=== PATIENT | female | born 1975 | race Caucasian/White ===

== ENCOUNTER → 2024-02-09 | Outpatient (CLI) | payer OTHER ==
--- NOTE | 2024-02-12 16:58 | MM ---
Reason for Exam: Screening (asymptomatic). Last mammogram was performed 2 year(s) and 8 month(s) ago. Patient History: Menarche at age 12. First Full-Term at age 19. Premenopausal. Risk Values: Tierra 5 year model risk: 0.8%. NCI Lifetime model risk: 8.2%. Prior Study Comparison: 07/30/2017 Bilateral Screening Mammogram, [place]. 05/28/2021 Bilateral Screening Mammogram, [place]. Tissue Density: The breasts are heterogeneously dense, which may obscure small masses. Findings: Analyzed By CAD. Complex pattern appears stable. There is a rounded density measuring 1.8 cm with partially obscured margins 8 cm nipple mid posterior right cranial caudal view. Ultrasound recommended There is a 1.7 cm rounded density 9 cm upper left breast, approximately 11:00 position. Additional evaluation with ultrasound is recommended. Overall Assessment: Incomplete: need additional imaging evaluation, BI-RAD 0 Management: Diagnostic Breast Ultrasound of both breasts. A negative mammogram report should not preclude additional follow up of suspicious palpable abnormalities. Patient should continue monthly self breast exam. A clinical breast exam by your physician is recommended on an annual basis and results should be correlated with mammographic findings. Note on Tierra scores and lifetime risk: 1. A Tierra score greater than 3% is considered moderate risk. If this is the case, consider specialist referral to assess eligibility for a risk reducing agent. 2. If overall lifetime risk for the development of breast cancer is 20% or higher, the patient may qualify for future screening with alternating mammogram and breast MRI. [facility], , 02/12/2024 4:55 PM. Electronically signed and approved by: Christopher Chamberlain D.O. Radiologis
== END | disposition home or self-care (01) ==
LOC: RADMAMWWP 11:24
PROVIDERS: ATTEND Family Medicine
DX: Z12.31 Encounter for screening mammogram for malignant neoplasm of breast (principal); R92.333 Mammographic heterogeneous density, bilateral breasts
CPT/HCPCS: 77067

== ENCOUNTER → 2024-02-18 | Outpatient (CLI) | payer OTHER ==
--- NOTE | 2024-02-18 14:45 | USB ---
Reason for Exam: Additional evaluation requested from abnormal screening. Patient History: Menarche at age 12. First Full-Term at age 19. Premenopausal. Risk Values: Tierra 5 year model risk: 0.8%. NCI Lifetime model risk: 8.2%. Technique: Method: Targeted. Prior Study Comparison: 07/30/2017 Bilateral Screening Mammogram, [place]. 05/28/2021 Bilateral Screening Mammogram, [place]. 02/09/2024 Bilateral MG screening mammo w CAD, [facility]. Findings: The upper section of the breast of both breasts, the axilla of both breasts and the retroareolar of both breasts were scanned. Technique utilized:US breast workup limited FAMILIA Image; Ultrasound imaging of: Area of concern, retroareolar region and axilla. No evidence for organizing fluid collection or mass. Bilateral Simple appearing cysts 10 o clock 8 cmFN on the right 11:00 8 cm FN on the right 12:00 9 cmFN on the left. Overall Assessment: Benign, BI-RAD 2 Management: Screening Mammogram of both breasts in 1 year. A clinical breast exam by your physician is recommended on an annual basis and results should be correlated with mammographic findings. This exam should not preclude additional follow-up of suspicious palpable abnormalities. Results were given to the patient verbally at the time of exam. [facility], , 02/18/2024 2:42 PM. Electronically signed and approved by: David Feldman DO
== END | disposition home or self-care (01) ==
LOC: RADUSWWP 13:54
PROVIDERS: ATTEND Family Medicine
DX: R92.8 Other abnormal and inconclusive findings on diagnostic imaging of breast (principal)